=== PATIENT | female | born 1970 | race Caucasian/White ===

== ENCOUNTER 2023-11-09 14:32 | Emergency (ER) | payer BC, SELFPAY ==
[2023-11-09 14:46] VITALS: BP 125/78
[2023-11-09 15:09] LABS: % Basophils 0.3 % (0-2); % Eosinophils 0.3 % (0-6); % Immature Granulocytes 1.1 % (0-0.5); % Lymphocytes 3.9 % (20.5-51.1); % Monocytes 4.3 % (1.7-9.3); % Neutrophils 90.1 % (42.2-75.2); Absolute Basophils 0.1 10^3/uL (0-0.2); Absolute Eosinophils 0.1 10^3/uL (0-0.7); Absolute Immature Granulocytes 0.2 10^3/uL (0-0.05); Absolute Lymphocytes 0.8 10^3/uL (1.2-3.4); Absolute Monocytes 0.9 10^3/uL (0.1-0.6); Absolute Neutrophils 18.9 10^3/uL (1.4-6.5); Hematocrit 34.9 % (37.0-47.0); Hemoglobin 12.3 g/dL (12.0-16.0); Mean Corp Hgb Conc. 35.2 g/dL (33.0-37.0); Mean Corpuscular Volume 85.1 fL (81.0-99.0); Mean Platelet Volume 8.2 fL (7.4-10.4); Nucleated Red Blood Cells % 0 %; Platelet Count 460 10^3/uL (130-400); Red Cell Dist. Width 13.3 % (11.5-14.5); White Blood Cell Count 20.9 10^3/uL (4.8-10.8)
[2023-11-09 15:22] LABS: ALT (SGPT) 24 U/L (0-35); AST (SGOT) 31 U/L (14-36); Alkaline Phosphatase 102 U/L (38-126); Blood Urea Nitrogen 18 mg/dl (7-17); Calcium 9.6 mg/dl (8.4-10.2); Carbon Dioxide 29 mmol/L (22-30); Chloride 98 mmol/L (98-107); Glucose 112 mg/dl (70-99); Potassium 4.1 mmol/L (3.5-5.1); Sodium 133 mmol/L (135-145); Total Bilirubin 0.5 mg/dl (0.2-1.3); Total Protein 6.8 g/dl (6.3-8.2); eGFR > 60.00
[2023-11-09 15:23] LABS: COVID-19 Antigen Negative (Negative)
--- NOTE | 2023-11-09 17:25 | ED.GENMED ---
History of Present Illness
General
Chief Complaint: Fever
Source: patient
Exam Limitations: none
Time Seen by Provider: 11/09/23 17:03
Travel History
Have you had any contact with someone who has COVID-19?: No
Do you have any symptoms of coronavirus? Fever > 100 degrees, chills, cough, shortness of breath, sore throat, loss of taste or smell, muscle aches, or headache?: Yes
Symptoms:: see triage note
History of Present Illness
History of Present Illness:
53-year-old otherwise healthy female presents with onset of rigors and shaking chills last evening. This was preceded by 3 weeks worth of cough fatigue sore throat intermittent headaches. 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
symptoms and have been for several weeks. She denies vomiting. She notes good appetite. She has been eating and drinking well. No urinary symptoms. No chest pain. She denies shortness of breath. Last medicine she took was 8 AM this morning
which was Advil for her fever.
Phy Exam
Physical Exam
Physical Exam:
General: Well-appearing nontoxic female no acute respiratory distress
HEENT: Normocephalic atraumatic neck is supple posterior pharynx without erythema mucosa moist TMs normal
Heart: Regular rate and rhythm no murmurs
Lungs: Clear no wheeze
Abdomen: Soft nontender nondistended no guarding rebound normal bowel sounds
Neurologic exam: No meningeal signs. Alert and oriented x 3
Extremities: No cyanosis or edema
Skin: Warm no rash
Course
Orders/Labs/Results
Orders:
Orders
11/09/23 14:51
Chest [CR Chest - 2 Views ] Urgent
Comment:
Reason For Exam: cough, dec pulse ox
11/09/23 14:52
EKG [Electrocardiogram (*1)] Urgent
Reason for Study: Tachycardia
EKG- Treatment ONCE
11/09/23 15:02
COVID-19 Antigen Urgent
Source: Nasal Swab
Complete Blood Count/With Diff Urgent
Comprehensive Metabolic Panel Urgent
Influenza A+B Rapid Molecular Urgent
[facility] Source: Nasal Swab
Specimen Description:
11/09/23 17:18
Acetaminophen [Tylenol] 1,000 mg PO NOW STA
11/09/23 17:38
CT Chest Pe Study Urgent
Comment:
Reason For Exam: fever, cough, tachypnea, sob
11/09/23 19:58
0.9% Sodium Chloride 1000 ml [Nss] 2,000 ml IV BOLUS
11/09/23 21:00
Blood Culture Q30M
[facility] Source: Blood/Venous
Specimen Description:
11/09/23 21:30
Blood Culture Q30M
[facility] Source: Blood/Venous
Specimen Description:
Abnormal Lab Results
11/09/23
15:02
WBC 20.9 H 10^3/uL
(4.8-10.8)
RBC 4.10 L 10^6/uL
(4.20-5.40)
Hct 34.9 L %
(37.0-47.0)
Plt Count 460 H 10^3/uL
(130-400)
Abs Immat Gran (auto) 0.2 H 10^3/uL
(0-0.05)
Absolute Neuts (auto) 18.9 H 10^3/uL
(1.4-6.5)
Absolute Lymphs (auto) 0.8 L 10^3/uL
(1.2-3.4)
Absolute Monos (auto) 0.9 H 10^3/uL
(0.1-0.6)
Immature Gran % 1.1 H %
(0-0.5)
Neutrophils % 90.1 H %
(42.2-75.2)
Lymphocytes % 3.9 L %
(20.5-51.1)
Sodium 133 L mmol/L
(135-145)
BUN 18 H mg/dl
(7-17)
Glucose 112 H mg/dl
(70-99)
11/09/23 15:02
11/09/23 15:02
Vital Signs
Initial and Last Documented VS:
Initial Vital Signs
Temp Pulse Resp BP Pulse Ox
101.7 F H 140 18 125/78 97
11/09/23 14:46 11/09/23 14:46 11/09/23 14:46 11/09/23 14:46 11/09/23 14:46
Last Documented Vital Signs
Temp Pulse Resp BP Pulse Ox
99.2 F 122 19 120/68 97
11/09/23 18:59 11/09/23 20:32 11/09/23 20:32 11/09/23 20:00 11/09/23 14:46
MDM/Problems Addressed
Differential Diagnosis Includes:
Fever. Consider flu versus COVID versus pneumonia. Patient is nontoxic no abdominal pain no urinary symptoms. Do not suspect meningitis.
COVID and flu are negative. Chest x-ray was ordered through triage which have personally visualized and read by radiology as negative.
White blood cell count is 20.9. Will order Tylenol for the fever
*Critical Care Note
Total Time (30-74mins, 75-104mins- exclusive of procedures): Not Applicable
Update Note
Update Note:
Patient reevaluated multiple times. She received a fluid bolus and heart rate has improved she looks well not tachypneic upon reassessment. Patient expresses her desire to go home. Did explain to her that her white blood cell count is high she
was initially tachycardic with a fever and suspect some type of systemic infection and offered admission, but patient wished to go home. CT of the chest was negative for acute finding. Blood cultures were ordered. Will start on Augmentin. Strict
return precautions were given.
ED Attending Note
-
Portions of this chart may have been created with voice recognition software.� Occasional wrong word or��sound alike� substitutions may have occurred due to the inherent limitations of voice recognition software.
Discharge Plan
Departure
Patient Disposition: Home (Routine Discharge)
Date of Disposition: 11/09/23
Time of Disposition: 21:03
Patient with high blood pressure during this ER visit?: No
Discharge Problem:
Fever
Instructions: Fever, Adult (DC)
Prescriptions:
New
amoxicillin-pot clavulanate 875-125 mg tablet
1 tab PO BID Qty: 14 0RF
Referrals:
MADISYN CORTES [Other]
Activity Restrictions/Additional Instructions:
Continue with Tylenol or ibuprofen for fever control. Drink plenty of fluids. Use antibiotics as directed. You will receive a call if your blood cultures are positive. Please if you develop more fever vomiting start to feel worse come back.
Interventions
Interventions:
*Risk Screen - Suicide Last Done: 11/09/23 17:36
*General Assessment Last Done: 11/09/23 14:46
*Neglect/Abuse Screening Last Done: 11/09/23 17:36
*ED COVID-19 Vaccine History Last Done: 11/09/23 14:46
ED- Neurological Assessment Last Done: 11/09/23 17:57
ED-Skin Assessment Last Done: 11/09/23 17:57
[2023-11-09 17:35] VITALS: BMI 37.5
[2023-11-09] MEDS: TYLENOL 1000 MG PO (17:37)
[2023-11-09 17:48] VITALS: BP 121/77
[2023-11-09 18:00] VITALS: BP 124/72
[2023-11-09 19:00] VITALS: BP 124/72
[2023-11-09 20:00] VITALS: BP 120/68
[2023-11-09] MEDS: NSS 2000 IV (20:32)
[2023-11-09 21:00] VITALS: BP 130/71
[2023-11-09] MEDS: AUGMENTIN 875 MG/125 MG 1 TABLET PO (21:27)
== END 2023-11-09 22:26 | disposition home or self-care (01) ==
LOC: EMR 14:32
PROVIDERS: Emergency Medicine; EMERGENCY PHYSICIAN Emergency Medicine
DX: R50.9 Fever, unspecified (principal); R09.02 Hypoxemia
CPT/HCPCS: 99283; 96360; 71046; 71275; 80053; 85025; 87040; 87502; 87811; 93005; Q9967